=== PATIENT | female | born 1970 | race African-American/Black ===

== ENCOUNTER → 2018-01-20 | Outpatient (CLI) | payer BC ==
--- NOTE | 2018-01-20 17:04 | RAD ---
Bilateral lower extremity arterial Doppler ultrasound HISTORY: HX RESTLESS LEG SYNDROME, LEG PAIN RIGHT GREATER THAN LEFT
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 COMPARISON: None are available All velocity measurements are in centimeters per second. Right leg: Triphasic waveforms from the common femoral artery through the popliteal artery velocities ranging from 68-128. Triphasic waveforms at the posterior tibial artery, anterior tibial artery and dorsalis pedis artery. Monophasic waveform at the proximal posterior tibial artery, and biphasic waveform at the peroneal artery. Peroneal artery velocity is 34. Popliteal artery velocity is 68. Plaque identified within the arteries in the calf. Left leg: Triphasic waveforms from the left common femoral artery through the ankle. Velocities range from 48-156. No abrupt velocity shifts. Plaque identified within the calf arteries. Inguinal lymph nodes are identified bilaterally are mildly enlarged but demonstrate a benign-appearing morphology. IMPRESSION: 1. Monophasic waveform in the proximal right posterior tibial artery, concerning for a proximal stenosis. Biphasic waveform in the right peroneal artery also could indicate a more proximal stenosis. 2. No evidence of high-grade stenosis or occlusive disease in the left lower extremity arteries. 3. Mildly prominent inguinal lymph nodes, most likely reactive or hyperplastic. Electronically signed by: Timmy Fulton MD (01/20/2018 5:01 PM) [facility]
== END | disposition home or self-care (01) ==
LOC: US 08:53
PROVIDERS: ATTEND Family Medicine
DX: I70.293 Other atherosclerosis of native arteries of extremities, bilateral legs (principal); G25.81 Restless legs syndrome; N39.0 Urinary tract infection, site not specified; G47.33 Obstructive sleep apnea (adult) (pediatric); R53.81 Other malaise
CPT/HCPCS: 93925

== ENCOUNTER 2018-06-04 09:07 | Emergency (ER) | payer BC ==
[~2018-06-04] VITALS: Ht 180.3 cm; Wt 110.7 kg
[2018-06-04] MEDS ORDERED: CYCLOBENZAPRINE 10 MG TABLET. PO ONE (09:45)
[2018-06-04] MEDS ORDERED: traMADol 50 MG TABLET PO ONE (09:45)
--- NOTE | 2018-06-04 10:43 | RAD ---
Left lower extremity venous doppler ultrasound Indication:LT LEG PAIN X 3 DAYS Technique: Color Doppler, grayscale, and spectral waveform analysis is used to evaluate the left femoral and popliteal veins. Findings: No evidence of deep venous thrombosis. Normal response to augmentation, normal compressibility and normal phasicity is demonstrated. Visualized calf veins are patent. Impression: Negative for deep venous thrombosis Electronically signed by: Timmy Fulton MD (06/04/2018 10:40 AM) [facility]
[2018-06-04] MEDS ORDERED: TRAM-48 PO (11:05)
[2018-06-04] MEDS ORDERED: CYCL-331 PO (11:05)
--- NOTE | 2018-06-04 11:05 | PHYS DOC ---
Past History Past Medical History: No Pertinent History Past Surgical History: No Surgical History Smoking: Non-smoker Alcohol Use: None Drug Use: None Adult General Chief Complaint Chief Complaint: LOWEREXTREMITY INJURY [facility] HPI Patient is a 48 year old female who presents with complaining of left thigh pain for the last 2 days as a constant pain that getting worse with movement. Patient denies injury and focal neurodeficit. Patient states the pain started suddenly and denies shortness of breath and history of DVT and PE. Patient states she took ibuprofen at home with partial improvement of pain. Patient states she had the same pain previously with negative evaluation for DVT but still is concern for possible new DVT in her leg. Patient denies recent immobilization. Review of Systems Review of Systems Constitutional: Denies fever or chills [] Eyes: Denies change in visual acuity, redness, or eye pain [] HENT: Denies nasal congestion or sore throat [] Respiratory: Denies cough or shortness of breath [] Cardiovascular: No additional information not addressed in HPI [] GI: Denies abdominal pain, nausea, vomiting, bloody stools or diarrhea [] : Denies dysuria or hematuria [] Musculoskeletal: Denies back pain or joint pain [] Integument: Denies rash or skin lesions [] Neurologic: Denies headache, focal weakness or sensory changes [] Endocrine: Denies polyuria or polydipsia [] All other systems were reviewed and found to be within normal limits, except as documented in this note. Current Medications Current Medications Current Medications Medications (Trade) Dose Ordered Sig/[facility] Start Time Stop Time Status Last Admin Dose Admin Cyclobenzaprine HCl (Flexeril) 10 mg 1X ONCE 06/04/18 09:45 06/04/18 09:46 DC Tramadol HCl (Ultram) 50 mg 1X ONCE 06/04/18 09:45 06/04/18 09:46 DC Allergies Allergies Allergies Coded Allergies Type Severity Reaction Last Updated Verified No Known Drug Allergies 06/04/18 No Physical Exam Physical Exam Constitutional: Well developed, well nourished, mild distress, non-toxic appearance. [] HENT: Normocephalic, atraumatic. Eyes: PERRLA, EOMI, conjunctiva normal, no discharge. [] Neck: Normal range of motion, no tenderness, supple, no stridor. [] Cardiovascular:Heart rate regular rhythm, no murmur [] Lungs & Thorax: Bilateral breath sounds clear to auscultation [] Back: No tenderness, no CVA tenderness. [] Extremities: Left lower extremity without deformity or edema, normal range of motion, no muscle tenderness, No tenderness, no cyanosis, no clubbing, ROM intact, no edema. [] Neurologic: Alert and oriented X 3, normal motor function, normal sensory function, no focal deficits noted. [] Psychologic: Affect normal, judgement normal, mood normal. [] Current Patient Data Vital Signs Vital Signs Date Time Temp Pulse Resp B/P (MAP) Pulse Ox O2 Delivery O2 Flow Rate FiO2 06/04/18 09:19 97.7 76 20 98 Room Air EKG EKG [] Radiology/Procedures Radiology/Procedures [address] [address] IMAGING REPORT Signed PATIENT: JAMES TERAN ACCOUNT: [id number] : 1970 LOCATION: ER AGE: 48 SEX: F EXAM STATUS: PRE ER ORD. PHYSICIAN: ISABELLA RIVERA MD REASON: pain for 3 days PROCEDURE: VENOUS LOWER EXTREMITY LEFT Left lower extremity venous doppler ultrasound Indication:LT LEG PAIN X 3 DAYS Technique: Color Doppler, grayscale, and spectral waveform analysis is used to evaluate the left femoral and popliteal veins. Findings: No evidence of deep venous thrombosis. Normal response to augmentation, normal compressibility and normal phasicity is demonstrated. Visualized calf veins are patent. Impression: Negative for deep venous thrombosis Electronically signed by: Timmy Fulton MD (06/04/2018 10:40 AM) [facility] DICTATED AND SIGNED BY: TIMMY FULTON MD DATE: 06/04/18 1040 CC: AISHWARYA AWAN MD; ISABELLA RIVERA MD ~ Course & Med Decision Making Course & Med Decision Making Pertinent Imaging studies reviewed. (See chart for details) Evolution of patient in ER showed 48-year-old female patient with complaining of left lower extremity pain for 3 days that getting worse with movement. Patient had unremarkable physical exam and venous Doppler study. She did not want to have pain medication in ER. Plan discharge patient home with diagnosis of musculoskeletal lower extremity pain. Dragon Disclaimer Dragon Disclaimer This electronic medical record was generated, in whole or in part, using a voice recognition dictation system. Departure Departure: Impression: Primary Impression: Pain of left lower extremity Additional Impression: Muscle strain of left hip Disposition: HOME, SELF-CARE (at 1102) Condition: STABLE Referrals: AISHWARYA AWAN MD (PCP) Patient Instructions: Muscle Strain Additional Instructions: Drink plenty of liquids Follow-up with your primary care physician in 3-5 days Return to ER if not getting better Apply ice on the affected area Scripts Tramadol Hcl (ULTRAM) 50 Mg Tablet 50 MG PO PRN Q6HRS PRN for PAIN, #14 TAB Prov: ISABELLA RIVERA MD 06/04/18 Cyclobenzaprine Hcl (CYCLOBENZAPRINE HCL) 10 Mg Tablet 1 TAB PO TID for pain, #30 TAB Prov: ISABELLA RIVERA MD 06/04/18 Problem Qualifiers Additional Impression: Muscle strain of left hip Encounter type: subsequent encounter Qualified Codes: S76.012D - Strain of muscle, fascia and tendon of left hip, subsequent encounter ISABELLA RIVERA MD Jun 04, 2018 11:05
[2018-06-04 11:22] VITALS: BP 114/76
== END 2018-06-04 11:22 | disposition home or self-care (01) ==
LOC: ER 09:07
DX: M79.605 Pain in left leg (principal); S76.012A Strain of muscle, fascia and tendon of left hip, initial encounter; X58.XXXA Exposure to other specified factors, initial encounter; Y93.89 Activity, other specified; Y92.89 Other specified places as the place of occurrence of the external cause; Y99.8 Other external cause status
CPT/HCPCS: 93971; 99284-25

== ENCOUNTER 2018-10-13 10:19 | Emergency (ER) | payer BC ==
[~2018-10-13] VITALS: Ht 180.3 cm; Wt 115.7 kg
[~2018-10-13 10:19] MED LIST: CYCL-331 PO; TRAM-48 PO
--- NOTE | 2018-10-13 10:51 | PHYS DOC ---
Past History Past Medical History: No Pertinent History Past Surgical History: No Surgical History Smoking: Non-smoker Alcohol Use: None Drug Use: None Adult General Chief Complaint Chief Complaint: FLANK PAIN HPI HPI Patient is a 48 yo f after eating spicy tacos ruq pain radiates to right shoulder shapr and burning a/w nausea had similar sypmtom last month ros chills neg for sob cp bloody stools diarrhea. Review of Systems Review of Systems Constitutional: Denies fever or chills [] Eyes: Denies change in visual acuity, redness, or eye pain [] HENT: Denies nasal congestion or sore throat [] Respiratory: Denies cough or shortness of breath [] Musculoskeletal: Denies back pain or joint pain [] All other systems were reviewed and found to be within normal limits, except as documented in this note. Allergies Allergies Allergies Coded Allergies Type Severity Reaction Last Updated Verified No Known Drug Allergies 06/04/18 No Physical Exam Physical Exam Constitutional: Well developed, well nourished, no acute distress, non-toxic appearance. [] HENT: Normocephalic, atraumatic, bilateral external ears normal, oropharynx moist, no oral exudates, nose normal. [] Eyes: PERRLA, EOMI, conjunctiva normal, no discharge. [] Neck: Normal range of motion, no tenderness, supple, no stridor. [] Cardiovascular:Heart rate regular rhythm, no murmur [] Lungs & Thorax: Bilateral breath sounds clear to auscultation [] Abdomen: Bowel sounds normal, soft, ttp ruq Skin: Warm, dry, no erythema, no rash. [] Back: No tenderness, no CVA tenderness. [] Extremities: No tenderness, no cyanosis, no clubbing, ROM intact, no edema. [] Neurologic: Alert and oriented X 3, normal motor function, normal sensory function, no focal deficits noted. [] Psychologic: Affect normal, judgement normal, mood normal. [] Current Patient Data Vital Signs Vital Signs Date Time Temp Pulse Resp B/P (MAP) Pulse Ox O2 Delivery O2 Flow Rate FiO2 10/13/18 10:33 97.8 63 16 100 Room Air Lab Results BP 135/88 EKG EKG []Normal sinus rhythm rate of 53 no acute ischemic changes noted nonspecific changes anteriorly no STEMI interpreted by me the timing encounter Radiology/Procedures Radiology/Procedures [] Impressions: The IVC is poorly visualized. IMPRESSION: No evidence of gallstones. Electronically signed by: Sebastián Stafford MD (10/13/2018 1:30 PM) [facility] DICTATED AND SIGNED BY: SEBASTIÁN STAFFORD MD DATE: 10/13/18 8829 CC: AISHWARYA AWAN MD; TODD MICHEL MD ~ Course & Med Decision Making Course & Med Decision Making Pertinent Labs and Imaging studies reviewed. (See chart for details ruq epigastric pain after spicy food u/s labs neg felt better in er take antacid f/u pcp/gi if not improving pt agreeable discussed dietary interventions Dragon Disclaimer Dragon Disclaimer This electronic medical record was generated, in whole or in part, using a voice recognition dictation system. Departure Departure: Impression: Primary Impression: Epigastric pain Disposition: HOME, SELF-CARE Condition: IMPROVED Referrals: AISHWARYA AWAN MD (PCP) Scripts Hydrocodone Bit/Acetaminophen (NORCO 5-325 TABLET) 1 Each Tablet 1 TAB PO TID PRN for PAIN, #8 TAB Prov: TODD MICHEL MD 10/13/18 Pantoprazole Sodium (PROTONIX) 20 Mg Tablet. 1 TAB PO DAILY for gastritis, #30 TAB Prov: TODD MICHEL MD 10/13/18 TODD MICHEL MD Oct 13, 2018 10:51
[2018-10-13] MEDS ORDERED: ONDANSETRON PF 4 MG/2 ML VIAL. IV ONE (11:00)
[2018-10-13] MEDS ORDERED: MORPHINE SULFATE 4 MG/ML DISP.SYRIN. IV ONE (11:00)
[2018-10-13] MEDS ORDERED: IV NORMAL SALINE 1,000ML 1,000 ML IV ONE (11:00)
[2018-10-13 11:06] LABS: BASO % 1 % (0-3); EOS % 0 % (0-3); HEMATOCRIT 40.6 % (36.0-47.0); HEMOGLOBIN 12.8 g/dL (12.0-15.5); LYMPH # 2.4 x10^3/uL (1.0-4.8); LYMPH % 36 % (24-48); MEAN CORPUSCULAR HEMOGLOBIN 28 pg (25-35); MEAN CORPUSCULAR HGB CONC 32 g/dL (31-37); MEAN CORPUSCULAR VOLUME 88 fL (79-100); MONO # 0.4 x10^3/uL (0.0-1.1); MONO % 6 % (0-9); NEUT # 3.8 x10^3uL (1.8-7.7); NEUT % 58 % (31-73); PLATELET COUNT 286 x10^3/uL (140-400); RED BLOOD COUNT 4.63 x10^6/uL (3.50-5.40); RED CELL DISTRIBUTION WIDTH 14.9 % (11.5-14.5); WHITE BLOOD COUNT 6.7 x10^3/uL (4.0-11.0)
[2018-10-13 11:13] LABS: ALBUMIN 3.9 g/dL (3.4-5.0); ALBUMIN/GLOBULIN RATIO 0.8 (1.0-1.7); CALCIUM 9.9 mg/dL (8.5-10.1); CREATININE 0.8 mg/dL (0.6-1.0); GFR 92.2; POTASSIUM 3.7 mmol/L (3.5-5.1); TOTAL BILIRUBIN 0.4 mg/dL (0.2-1.0); TOTAL PROTEIN 8.5 g/dL (6.4-8.2)
[2018-10-13 11:17] LABS: BILIRUBIN,URINE NEG (NEG); CLARITY,URINE CLOUDY; COLOR,URINE YELLOW; GLUCOSE,URINE NEG (NEG); NITRITE,URINE POS (NEG); UROBILINOGEN,URINE 0.2 mg/dL (0.2 mg/dL)
[2018-10-13 11:18] LABS: BACTERIA,URINE MANY /HPF (0-FEW); HYALINE CASTS, URINE OCC /HPF; SQUAMOUS EPITHELIAL CELL,UR MOD /LPF
--- NOTE | 2018-10-13 13:33 | RAD ---
Examination: Ultrasound abdomen limited HISTORY: History of right upper quadrant pain COMPARISON: None available. FINDINGS: The liver length measures 17.5 cm. No evidence of gallstones identified. The common bile duct measures 3.5 mm in transverse dimension. The right kidney measures 12.3 cm in length. The visualized pancreas grossly appears unremarkable. The IVC is poorly visualized. IMPRESSION: No evidence of gallstones. Electronically signed by: Sebastián Stafford MD (10/13/2018 1:30 PM) [facility]
[2018-10-13] MEDS ORDERED: HYDR-3165 PO (13:44)
[2018-10-13] MEDS ORDERED: PANT20TA58 PO (13:44)
[2018-10-13 14:12] VITALS: BP 129/79
--- NOTE | 2018-10-13 17:57 | EKG ---
[address] [address] Test Date: 2018-10-13 Test Time: 11:19:43 Pat Name: JAMES TERAN Department: Room: Gender: F Help Desk Coordinator: COREY : 1970 Requested By: TODD MICHEL Order Number: [id number] Reading MD: Measurements Intervals [place] Rate: 53 P: -32 HI: 178 QRS: 67 QRSD: 100 T: 41 QT: 476 QTc: 449 Interpretive Statements SINUS RHYTHM VENTRICULAR PREMATURE COMPLEX(ES) QRS(T) CONTOUR ABNORMALITY CONSIDER ANTEROSEPTAL MYOCARDIAL DAMAGE ABNORMAL ECG RI6.01 No previous ECG available for comparison
== END 2018-10-13 14:13 | disposition home or self-care (01) ==
LOC: ER 10:19
DX: R10.13 Epigastric pain (principal); R10.11 Right upper quadrant pain; R11.0 Nausea
CPT/HCPCS: 36415; 76705; 80053; 81001; 83690; 84484; 85025; 87086; 93005; 96374; 96375; 99285; J2270; J2405; 87186; J7030

== ENCOUNTER 2019-11-15 18:00 | Emergency (ER) | payer BC ==
[~2019-11-15 18:00] MED LIST changes: +HYDR-3165 PO; +PANT20TA58 PO
== END 2019-11-15 18:04 | disposition left against medical advice (07) ==
LOC: ER 18:00
DX: R22.43 Localized swelling, mass and lump, lower limb, bilateral (principal); Z53.21 Procedure and treatment not carried out due to patient leaving prior to being seen by health care provider

== ENCOUNTER → 2019-11-17 | Outpatient (CLI) | payer BC ==
[~2019-11-17] MED LIST changes: +CONTRAST GIVEN. MC PRN
[2019-11-17] MEDS: IOHEXOL 350 MG/ML 100 ML VIAL. IV ONE (08:43)
--- NOTE | 2019-11-17 09:19 | RAD ---
EXAM: CT ANGIOGRAPHY OF THE CHEST WITH AND WITHOUT CONTRAST. HISTORY: Shortness of breath, elevated d-dimer, recent surgery. TECHNIQUE: Computed tomographic angiography of the chest was performed before and after the intravenous administration of iodinated contrast. 3-D maximum intensity projections were also performed. One or more of the following individualized dose reduction techniques were utilized for this examination: 1. Automated exposure control. 2. Adjustment of the mA and/or kV according to patient size. 3. Use of iterative reconstruction technique. COMPARISON: None. FINDINGS: Images of the upper abdomen reveal a gastric band prosthesis. There is subcutaneous edema throughout the posterior body wall. There also is some edema within the superior aspect of the omentum. Postprocedural subcutaneous gas is noted along the inferior aspect of the anterior chest wall, most notably along the inferior aspect of the right breast. Bone windows reveal no suspicious lesions. No pulmonary emboli are identified. There is no aortic dissection or aneurysm. One left axillary lymph node is asymmetrically prominent measuring 2.3 x 1.2 cm. This may be reactive given the body wall process. No clear breast lesions or appreciable by CT. There are no enlarged mediastinal lymph nodes. There is no pleural or pericardial effusion. The heart is not enlarged. Lung windows reveal mild bibasilar atelectasis. IMPRESSION: 1. No pulmonary embolism. 2. Subcutaneous gas and subcutaneous edema throughout the visualized body wall are likely postprocedural. Correlate to exclude infection. The superior aspect of the omentum is also involved. 3. A prominent left axillary lymph node may be reactive in this setting. No clear breast lesions or appreciable by CT. Correlation with current mammography is suggested. Sonography of the left axilla could confirm resolution of the lymph node after resolution of the postprocedural process. Electronically signed by: Dunia North MD (11/17/2019 9:16 AM) [id number]
== END | disposition home or self-care (01) ==
LOC: CT 08:17
PROVIDERS: ATTEND Internal Medicine
DX: R79.1 Abnormal coagulation profile (principal)
CPT/HCPCS: 71275; Q9967

== ENCOUNTER → 2020-11-27 | Day surgery (SDC) | payer BC ==
[~2020-11-27] MED LIST changes: -CONTRAST GIVEN. MC PRN; -CYCL-331 PO; +CYCL10TA19 PO; +IBUP800T19 PO
[2020-11-27 10:45] VITALS: BP 125/71
== END ==
LOC: SURG 10:37
PROVIDERS: ATTEND Anesthesiology
DX: M54.16 Radiculopathy, lumbar region (principal); M19.90 Unspecified osteoarthritis, unspecified site; Z79.899 Other long term (current) drug therapy; Z87.891 Personal history of nicotine dependence
CPT/HCPCS: 99214; G0463

== ENCOUNTER → 2021-02-27 | Day surgery (SDC) | payer BC ==
[~2021-02-27] MED LIST changes: +BUPIVACAINE MPF 0.25% 10 ML VIAL. ONE; +DEXAMETHASONE SOD PHOS 10 MG/ML VIAL. ONE
[2021-02-27 11:18] VITALS: BP 113/62
== END | disposition home or self-care (01) ==
LOC: SURG 10:38
PROVIDERS: ATTEND Anesthesiology
DX: M79.671 Pain in right foot (principal); M79.672 Pain in left foot; M19.90 Unspecified osteoarthritis, unspecified site
CPT/HCPCS: 64450; A4657; A4930; J1100; J3490